=== PATIENT | female | born 1960 | race Native Hawaiian/Other Pacific Islander ===

== ENCOUNTER 2021-01-12 09:53 | Outpatient (CLI) | payer OTHER | END 2021-01-12 21:09 | disposition home or self-care (01) | LOC: RAD 09:53 | PROVIDERS: ATTEND Nurse Practitioner Family | DX: J20.9 Acute bronchitis, unspecified (principal) ==

== ENCOUNTER 2021-03-03 17:06 | Outpatient (CLI) | payer OTHER ==
[2021-03-03 17:22] LABS: PLATELET COUNT 303 K/uL (152-353)
[2021-03-03 17:44] LABS: POTASSIUM 4.1 mmol/L (3.6-5.2)
== END 2021-03-03 21:20 | disposition home or self-care (01) ==
LOC: LABW 17:06
PROVIDERS: ATTEND Psychiatry & Neurology Neurology
DX: R26.0 Ataxic gait (principal); E55.9 Vitamin D deficiency, unspecified; G35 Multiple sclerosis
CPT/HCPCS: 36415; 80053; 82306; 85027